=== PATIENT | female | born 2000 | race Caucasian/White ===

== ENCOUNTER 2022-11-14 10:34 | Emergency (ER) | payer OTHER ==
[2022-11-14 10:45] VITALS: O2SAT 100
--- NOTE | 2022-11-14 11:25 | ED Physician Documentation ---
PD HPI CHEST PAIN - Stated complaint Stated Complaint: CHEST PX - Chief complaint Chief Complaint: Cardiac - History obtained from History obtained from: Patient - History of Present Illness Timing - onset: Last night (onset while lying in bed/sleeping of left sternal/substernal throbbing pain. No dyspnea. Unchnaged with sitting up and no change with eating lightly this morning. The pain did dissipate slowly this morning and is gone right now.) Timing - onset during: Sleep, Rest Timing - duration: Hours Timing - details: Abrupt onset, Now resolved Quality: Aching, Other (throbbing pain) Location: Substernal Radiation: No: Neck, Back, Abdominal Improved by: Other (not impacted by light breakfast). No: Rest Worsened by: No: Inspiration, Eating Associated symptoms: No: Shortness of air, Nausea, Vomiting Similar symptoms before: Has not had sx before Recently seen: Not recently seen Review of Systems Constitutional: denies: Fever, Chills Nose: denies: Rhinorrhea / runny nose, Congestion Throat: denies: Sore throat Respiratory: denies: Cough GI: denies: Abdominal Pain, Nausea, Vomiting PD PAST MEDICAL HISTORY - Past Medical History Past Medical History: No Cardiovascular: None Respiratory: None Endocrine/Autoimmune: None - Past Surgical History Past Surgical History: No - Allergies Allergies/Adverse Reactions: Allergies Allergy/AdvReac Type Severity Reaction Status Date / Time No Known Drug Allergies Allergy Verified 11/14/22 10:43 - Living Situation Living Situation: reports: Alone, Other (she is visiting with parents to [facility]. They live in [place] and pt lives in [place]. ) Living Arrangement: reports: At home - Social History Does the pt smoke?: No Smoking Status: Never smoker Does the pt drink ETOH?: No Does the pt have substance abuse?: No - Immunizations Immunizations are current?: Yes - POLST Patient has POLST: No PD ED PE NORMAL - Vitals Vital signs reviewed: Yes - General General: Alert and oriented X 3, No acute distress, Well developed/nourished - Cardiac Cardiac: RRR, No murmur - Respiratory Respiratory: Clear bilaterally, Other (mild chestwall tenderness left parasternal. ) - Abdomen Abdomen: Soft, Non tender - Derm Derm: Normal color, Warm and dry - Extremities Extremities: No edema, No calf tenderness / cord - Neuro Neuro: Alert and oriented X 3, No motor deficit, Normal speech Results - Vitals Vitals: Vital Signs - 24 hr 11/14/22 11/14/22 10:40 12:05 Temperature 36.6 C 36.5 C Heart Rate 63 62 Respiratory 18 16 Rate Blood Pressure 116/78 118/72 O2 Saturation 100 100 Oxygen O2 Source Room air - EKG (time done) 10:47 EKG releavant findings:: EKG personally interpreted by author of this note. Relevant findings are: Rate: Rate (enter#) (58) Rhythm: NSR [place]: Normal Intervals: Normal [place] QRS: Normal Ischemia: Normal ST segments. No: ST elevation c/w ischemia, ST depression Compare to prior EKG: Old EKG unavailable PD Medical Decision Making - ED course Complexity details: reviewed results (ECG is normal. Talked with pt about differential. SUggested getting CXR but she prefers not. Clinically does not seem pulmonary such as pneumonia, PTX, so I feel is okay without CXR.), considered differential (ANterior chest pain last night into this morning. No recent URI. NO injury. Some impact with movement and parasternal palpation. Sats are good, HR normal. PERC score is negative. No leg/calf tenderness. ), d/w patient Departure - Departure Disposition: 01 Home, Self Care Clinical Impression: Anterior chest wall pain, Chest pain Condition: Stable Record reviewed to determine appropriate education?: Yes Instructions: ED Chest Pain Atypical Unkn Cause Comments: Your EKG, lung sounds, vital signs are normal. It is unclear the cause of your chest pain you had overnight. No signs of significant acute cause. Consideration could be musculoskeletal and for that I would suggest some ibuprofen 2 or 3 tablets 2-3 times daily for the next few days. Follow-up with your primary care or another walk-in/ER if you have increased pain/recurrent pain or any associated shortness of breath, swelling or edema, lightheadedness etc. If you develop some coughing/fever/congestion in the next couple of days then this may have been an early signal of a viral illness coming on. Forms: PCP List Discharge Date/Time: 11/14/22 12:05
[2022-11-14 12:11] VITALS: BP 118/72
== END 2022-11-14 12:05 | disposition home or self-care (01) ==
LOC: ED 10:34
DX: R07.89 Other chest pain (principal)
CPT/HCPCS: 93005; 99283